=== PATIENT | female | born 1995 | race African-American/Black ===

== ENCOUNTER 2017-07-17 12:27 | Inpatient (IN) ==
[~2017-07-17 12:27] MED LIST: LACTATED RINGERS 1,000 ML IV ONE; MEPERIDINE 50 MG/1 ML VIAL IV ONE; ONDANSETRON 4 MG/2 ML VIAL IV ONE
[2017-07-17] MEDS ORDERED: ONDANSETRON 4 MG/2 ML VIAL ONE (13:46)
[2017-07-17] MEDS ORDERED: MEPERIDINE 50 MG/1 ML VIAL ONE (13:46)
[2017-07-17] MEDS: LACTATED RINGERS 1,000 ML IV SCH ×2 (14:37→16:08)
[2017-07-17] MEDS: NIFEdipine 10 MG CAPSULE PO SCH ×2 (16:05→21:35)
[2017-07-17] MEDS ORDERED: MEPERIDINE 50 MG/1 ML VIAL IV PRN (18:30)
[2017-07-17] MEDS ORDERED: LACTATED RINGERS 1,000 ML IV SCH (18:30)
[2017-07-17] MEDS ORDERED: ONDANSETRON 4 MG/2 ML VIAL IV PRN (18:30)
[2017-07-18] MEDS: NIFEdipine 10 MG CAPSULE PO SCH (03:16)
[2017-07-18] MEDS ORDERED: FAMOTIDINE 20 MG/2 ML VIAL IV ONE (13:32)
[2017-07-18] MEDS ORDERED: CITRIC ACID/SODIUM CITRATE 30 ML UDCUP PO ONE (13:32)
[2017-07-18] MEDS ORDERED: ceFAZolin 2,000 MG in PREMIX 1 EACH IV ONE (13:32)
[2017-07-18 13:53] LABS: Basophils % 0.4 % (0.0-0.8); Eosinophils # 0.1 10*3/uL (0.0-0.87); Eosinophils % 1.1 % (0.00-10.9); Immature Granulocytes % 0.8 %; Immature Granulocytes Absolute 0.04 #; Lymphocytes # 1.3 10*3/uL (1.4-4.0); Lymphocytes % 24.7 % (21.3-54.2); Mean Corpuscular Hemoglobin 24 PG (27-34); Mean Corpuscular Volume 74.9 FL (87-102); Mean Platelet Volume 12.3 FL (9.6-12.0); Monocytes # 0.6 10*3/uL (0.11-0.8); Monocytes % 11.1 % (1.7-12.7); Neutrophils # 3.3 10*3/uL (1.4-7.4); Neutrophils % 61.9 % (38.7-73.9); Platelet Count 198 T/CUMM (130-400); Red Blood Count 3.34 MC/CUMM (3.8-5.5); Red Cell Distribution Width 15.1 % (9.3-17.3); White Blood Count 5.3 T/CUMM (4-12)
[2017-07-18] MEDS ORDERED: LACTATED RINGERS 1,000 ML IV SCH ×2 (14:00→23:37)
[2017-07-18] MEDS ORDERED: OXYTOCIN 10 UNIT/ML VIAL ONE (14:17)
[2017-07-18 14:28] LABS: Albumin 2.6 G/DL (3.4-5.0); Bilirubin,Total 0.8 MG/DL (0.2-1.0); Calcium 8.5 MG/DL (8.5-10.1); Osmolality,Calculated 271.5 MOS/KG (273-304); Potassium 3.9 MMOL/L (3.5-5.1); Total Protein 6.4 G/DL (6.4-8.3)
[2017-07-18] MEDS: LACTATED RINGERS 1,000 ML IV SCH (16:00)
[2017-07-18] MEDS ORDERED: OXYTOCIN/LR 30 UNIT/1,000 ML BAG IV ONE (16:22)
[2017-07-18] MEDS ORDERED: HYDROmorphone 2 MG/1 ML VIAL IV PRN (16:28)
[2017-07-18] MEDS ORDERED: fentaNYL 100 MCG/2 ML VIAL ONE (18:49)
[2017-07-18] MEDS ORDERED: MORPHINE 10 MG/10 ML VIAL ONE (18:52)
[2017-07-18 19:08] LABS: Cord Venous Blood HCO3 21.5 MMOL/L; Cord Venous Blood PCO2 36.2 MMHG
[2017-07-18] MEDS ORDERED: OXYTOCIN/LR 20 UNIT/1,000 ML BAG IV ONE ×2 (21:16→23:37)
[2017-07-18] MEDS ORDERED: SIMETHICONE CHEW 80 MG TABLET PO PRN (23:37)
[2017-07-18] MEDS ORDERED: ONDANSETRON 4 MG/2 ML VIAL IV PRN (23:37)
[2017-07-18] MEDS ORDERED: RHO(D) IMMUNE GLOBULIN 300 MCG SYRINGE IM ONE (23:37)
[2017-07-18] MEDS ORDERED: ACETAMINOPHEN 325 MG TABLET PO PRN (23:37)
[2017-07-19] MEDS: ceFAZolin 1,000 MG in SYRINGE 1 EACH IV SCH ×4 (03:30→13:53)
[2017-07-19 05:46] LABS: Basophils % 0.1 % (0.0-0.8); Eosinophils # 0.1 10*3/uL (0.0-0.87); Eosinophils % 0.8 % (0.00-10.9); Hematocrit 26.3 VOL% (35.7-47.0); Immature Granulocytes % 0.7 %; Immature Granulocytes Absolute 0.05 #; Lymphocytes % 12.8 % (21.3-54.2); Mean Corpuscular HGB Conc 30.4 GM/DL (32-36); Mean Corpuscular Hemoglobin 23 PG (27-34); Mean Corpuscular Volume 76.7 FL (87-102); Mean Platelet Volume 12.8 FL (9.6-12.0); Monocytes # 0.8 10*3/uL (0.11-0.8); Neutrophils # 5.7 10*3/uL (1.4-7.4); Neutrophils % 74.6 % (38.7-73.9); Platelet Count 180 T/CUMM (130-400); Red Blood Count 3.43 MC/CUMM (3.8-5.5); Red Cell Distribution Width 14.9 % (9.3-17.3); White Blood Count 7.7 T/CUMM (4-12)
[2017-07-19] MEDS: NIFEdipine 10 MG CAPSULE PO SCH (07:26)
[2017-07-19] MEDS: DOCUSATE SODIUM 100 MG CAPSULE PO SCH ×3 (09:29→22:39)
[2017-07-19] MEDS: MAGNESIUM HYDROXIDE SUSP 30 ML UDCUP PO PRN ×2 (09:29→19:51)
[2017-07-19] MEDS: MULTIVITAMIN (PRENATAL) TABLET PO SCH (09:29)
[2017-07-19] MEDS ORDERED: ceFAZolin 1,000 MG in SYRINGE 1 EACH IV ONE (13:54)
[2017-07-19] MEDS: IBUPROFEN 800 MG TABLET PO PRN (19:51)
[2017-07-20] MEDS: IBUPROFEN 800 MG TABLET PO PRN (05:18)
[2017-07-20 09:40] VITALS: BP 102/68
[2017-07-20] MEDS: MULTIVITAMIN (PRENATAL) TABLET PO SCH (10:05)
[2017-07-20] MEDS: DOCUSATE SODIUM 100 MG CAPSULE PO SCH (10:05)
[2017-07-20] MEDS ORDERED: DIPH/TET/ACEL PERT BOOSTER VACCINE 0.5 ML VIAL IM ONE (10:28)
== END 2017-07-20 14:55 | disposition home or self-care (01) | DRG 540 ==
LOC: N.LDOUT 12:27 → N.LD 12:31 → N.OB 07-19 08:40
PROVIDERS: ADMIT Obstetrics & Gynecology; ATTEND Obstetrics & Gynecology
PROC: LDCSECT (ICD-10-PCS; 2017-07-18 16:00)